=== PATIENT | male | born 2000 | race Caucasian/White ===

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

== ENCOUNTER 2022-08-14 14:09 | Emergency (ER) | payer BC, SELFPAY ==
[2022-08-14] MEDS ORDERED: Lidocaine 1% MPF 2 ML VIAL ONE (17:15)
== END 2022-08-14 18:11 | disposition home or self-care (01) ==
LOC: ERS 14:09
DX: L02.611 Cutaneous abscess of right foot (principal); L03.031 Cellulitis of right toe
CPT/HCPCS: 10060; 87070; 87077; 87186; 87205